=== PATIENT | male | born 1965 | race Caucasian/White ===

== ENCOUNTER 2016-08-24 08:50 | Outpatient (CLI) | payer OTHER | END 2016-08-24 08:51 | disposition home or self-care (01) | DX: M85.89 Other specified disorders of bone density and structure, multiple sites (principal); Z79.83 Long term (current) use of bisphosphonates ==

== ENCOUNTER 2017-11-26 10:39 | Day surgery (SDC) | payer OTHER ==
[2017-11-26] MEDS ORDERED: LACTATED RINGERS 1,000 ML IV ONE (11:03)
[2017-11-26] MEDS ORDERED: MIDAZOLAM 2 MG/2 ML VIAL IVP ONE (11:30)
[2017-11-26] MEDS ORDERED: fentaNYL 250 MCG/5 ML VIAL IVP ONE (11:30)
[2017-11-26 12:37] VITALS: BP 107/73
== END 2017-11-26 10:40 | disposition home or self-care (01) ==
LOC: SDS 10:39
PROVIDERS: ATTEND Surgery
PROC: 0DBK8ZZ Excision of Ascending Colon, Via Natural or Artificial Opening Endoscopic (ICD-10-PCS; principal; 2017-11-26 11:45)
DX: Z12.11 Encounter for screening for malignant neoplasm of colon (principal); Z86.010 Personal history of colon polyps; D12.2 Benign neoplasm of ascending colon; K57.30 Diverticulosis of large intestine without perforation or abscess without bleeding
CPT/HCPCS: 45384; J3010; J7120

== ENCOUNTER 2019-01-30 15:10 | Emergency (ER) | payer OTHER ==
--- NOTE | 2019-01-30 15:52 | ED Physician Documentation ---
PD HPI FOCAL NEURO - Stated complaint Stated Complaint: TINGLING/NUMBNES IN HANDS/FEET/WEAKNESS - Chief complaint Chief Complaint: Neuro - History obtained from History obtained from: Patient - History of Present Illness Timing - onset: Today (For several months now he has had intermittent tingling in his feet which is not severe, after a long car trip last week he has some low neck pain and had brief leg weakness bilaterally today. That is gone.) Review of Systems Constitutional: denies: Fever, Chills Cardiac: denies: Chest pain / pressure, Palpitations Respiratory: denies: Dyspnea, Cough GI: denies: Abdominal Pain, Nausea, Vomiting PD PAST MEDICAL HISTORY - Past Medical History Past Medical History: Yes Cardiovascular: Hypertension, High cholesterol Respiratory: None Endocrine/Autoimmune: None GI: Colon polyps : None HEENT: None Psych: None Musculoskeletal: None, Osteoarthritis Derm: None - Past Surgical History Past Surgical History: Yes Ortho: Other - Present Medications Home Medications: Ambulatory Orders Medication Instructions Recorded Confirmed Calcium Carbonate/Vitamin D3 1 each PO DAILY 11/26/17 11/26/17 [Calcium 500-Vit D3 600 Caplet] Cholecalciferol (Vitamin D3) 400 unit PO DAILY 11/26/17 11/26/17 [Vitamin D3] Simvastatin 20 mg PO DAILY 11/26/17 11/26/17 - Allergies Allergies/Adverse Reactions: Allergies Allergy/AdvReac Type Severity Reaction Status Date / Time Sulfa (Sulfonamide Allergy Itching Verified 01/30/19 15:31 Antibiotics) - Social History Does the pt smoke?: No Smoking Status: Never smoker Does the pt drink ETOH?: Yes Does the pt have substance abuse?: No - Immunizations Immunizations are current?: Yes - POLST Patient has POLST: No PD ED PE NORMAL - Vitals Vital signs reviewed: Yes - General General: Alert and oriented X 3, No acute distress - Neck Neck: Supple, no meningeal sign, No bony TTP - Extremities Extremities: Other (He has normal upper extremity reflexes, 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 Normal sharp versus dull sensation in the feet. The patient has equal and normal Achilles and patellar reflexes bilaterally. Normal sensation in all areas of the legs. Patient denies saddle anesthesia. Normal strength in flexion-extension at the ankles, knees, and flexion of the hips.) - Neuro Neuro: Alert and oriented X 3, Normal speech Results - Vitals Vitals: Vital Signs - 24 hr 01/30/19 01/30/19 15:27 15:30 Temperature 36.7 C Heart Rate 53 L 53 L Respiratory 16 16 Rate Blood Pressure 129/88 H 129/88 H O2 Saturation 98 98 Oxygen O2 Source Room air PD MEDICAL DECISION MAKING - ED course ED course: His symptoms are most consistent with probably a cervical spinal stenosis. His examination is normal, outpatient work-up was suggested. Departure - Departure Disposition: 01 Home, Self Care Clinical Impression: Peripheral neuropathy Qualifiers: Peripheral neuropathy type: polyneuropathy, unspecified Qualified Code(s): G62.9 - Polyneuropathy, unspecified Condition: Good Comments: As discussed, I think your symptoms are most consistent with a cervical spinal stenosis. Other possibilities would be a vitamin deficiency or some other neuropathy. [place] consider imaging of the neck and/or referral for EMG and vitamin testing.
[2019-01-30 15:57] VITALS: BP 128/86
== END 2019-01-30 15:56 | disposition home or self-care (01) ==
LOC: ED 15:10
DX: G62.9 Polyneuropathy, unspecified (principal); I10 Essential (primary) hypertension
CPT/HCPCS: 99282; 99283